=== PATIENT | female | born 1985 | race Hispanic/Latino ===

== ENCOUNTER 2017-12-09 17:51 | Emergency (ER) | payer BC, OTHER ==
[2017-12-09 17:51] VITALS: BMI 25.7
[2017-12-09 19:14] VITALS: BP 136/87; PULSE 91; RESP 16; TEMP 98; O2SAT 100
--- NOTE | 2017-12-09 20:29 | ED PDOC ---
HPI: Psych/Substance Abuse Chief Complaint (Provider): Psychiatric Evaluation History Per: Patient History/Exam Limitations: no limitations Onset/Duration Of Symptoms: Persistent (x2 months) Current Symptoms Are (Timing): Still Present Additional Complaint(s): 32 year old female arrives to ED for an evaluation of depression and anxiety for the last 2 months. Patient states she has been dealing with multiple life stres sors including changing locations, jobs and a pending divorce, in which, she has difficulty getting out of bed. She denies any suicidal or homicidal ideation. Patient reports that she attempted to make an appointment with a psychologist but could not get any soon than January. PMD: Dr. Marquis Rudolph III <Kristen Moran - Last Filed: 12/09/17 22:00> <Hong Cavazos - Last Filed: 12/10/17 21:29> Time Seen by Provider: 12/09/17 19:18 Chief Complaint (Nursing): Psychiatric Evaluation Past Medical History Reviewed: Historical Data, Nursing Documentation, Vital Signs Vital Signs: Last Vital Signs Temp 98.0 F 12/09/17 19:11 Pulse 91 H 12/09/17 19:11 Resp 16 12/09/17 19:11 BP 136/87 12/09/17 19:11 Pulse Ox 100 12/09/17 19:11 - Family History Family History: States: Unknown Family Hx <Kristen Moran - Last Filed: 12/09/17 22:00> Vital Signs: Last Vital Signs Temp 98.0 F 12/09/17 19:11 Pulse 91 H 12/09/17 19:11 Resp 16 12/09/17 19:11 BP 136/87 12/09/17 19:11 Pulse Ox 100 12/09/17 22:03 <Hong Cavazos - Last Filed: 12/10/17 21:29> - Home Medications Home Medications: Ambulatory Orders Medication Instructions Recorded Dicyclomine [Bentyl] 20 mg PO TID PRN #15 tab 11/18/17 Ondansetron ODT [Zofran ODT] 4 mg PO TID #20 odt 11/18/17 - Allergies Allergies/Adverse Reactions: Allergies Allergy/AdvReac Type Severity Reaction Status Date / Time No Known Allergies Allergy Verified 10/05/18 19:10 Review of Systems ROS Statement: Except As Marked, All Systems Reviewed And Found Negative Psych: Positive for: Anxiety, Depression. Negative for: Suicidal ideation (or homicidal ideation) <DeanKristen Lee - Last Filed: 12/09/17 22:00> Physical Exam - Reviewed Nursing Documentation Reviewed: Yes Vital Signs Reviewed: Yes - Physical Exam Appears: Positive for: No Acute Distress Head Exam: Positive for: ATRAUMATIC, NORMAL INSPECTION, NORMOCEPHALIC Skin: Positive for: Normal Color Eye Exam: Positive for: Normal appearance Cardiovascular/Chest: Positive for: Regular Rate, Rhythm Respiratory: Positive for: Normal Breath Sounds. Negative for: Wheezing, Respiratory Distress Extremity: Positive for: Normal ROM (upper/lower) Neurologic/Psych: Positive for: Alert, Oriented (x3). Negative for: Motor/Sensory Deficits <MoranKristen yu - Last Filed: 12/09/17 22:00> - ECG O2 Sat by Pulse Oximetry: 100 (RA) Pulse Ox Interpretation: Normal <DeanKristen Lee - Last Filed: 12/09/17 22:00> Medical Decision Making Medical Decision Making: Time: 1914 Initial Plan: * Crisis evaluation Pt. requesting starting new psychiatric meds, when explained that may not happen, she wishes to leave. Pt. 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 ScribeAttestation: Documented byViji Rhodes, acting as a scribe for Kristen Moran PA-C. Provider ScribeAttestation: All medical record entries made by the Scribe were at my direction and personally dictated by me. I have reviewed the chart and agree that the record accurately reflects my personal performance of the history, physical exam, medical decision making, and the department course for this patient. I have also personally directed, reviewed, and agree with the discharge instructions and disposition. 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 <Hong Cavazos - Last Filed: 12/10/17 21:29>
== END 2017-12-09 20:35 | disposition home or self-care (01) ==
LOC: H.ER 17:51
DX: F41.9 Anxiety disorder, unspecified (principal); Z13.31 Encounter for screening for depression; Z86.59 Personal history of other mental and behavioral disorders; Z00.8 Encounter for other general examination